=== PATIENT | male | born 1990 | race Caucasian/White ===

== ENCOUNTER 2017-06-09 10:31 | Observation (INO) | payer MEDICAID, SELFPAY ==
[2017-06-09 10:46] VITALS: BMI 21.2
[2017-06-09 10:48] VITALS: BP 103/69; PULSE 93; RESP 18; TEMP 37.1; O2SAT 98
--- NOTE | 2017-06-09 11:28 | PCM.HP.STD ---
Problem List (1) Heroin withdrawal Status: Acute History of Present Illness Date of Admission: 06/09/17 Chief Complaint: heroin withdrawal The patient is a 27 year old M who is voluntarily seeking withdrawal treatment for heroin. Patient snorts heroin and his last use was at 10 AM yesterday. Since then. Patient's been feeling anxious, also having restless legs abdominal cramps. Patient had a yesterday that he was sitting his arms backwards when he developed pop. Subsequently, patient not been able to bean picker things with his right arm because of pain in his right side of his chest. [] Past Medical History Allergies Penicillins Allergy (Verified 06/09/17 11:06) Unknown Home Medications: Ambulatory Orders Medication Instructions Recorded No Known/Unobtainable [No Known 06/09/17 Home Medications] Smoking Status: Never smoker Alcohol: None Drugs: Heroin - Daily, Marijuana - Daily - *Family History Paternal History Items: - - No medical problems Review of Systems Constitutional: Denies: Chills, Fever, Weight Change Eyes: Denies: Blurred vision, Double vision HEENT: Reports: - - Rhinitis Cardiovascular: Denies: Chest Pain, Palpitations Respiratory: Denies: Cough, Shortness of breath at rest, Sputum production Gastrointestinal: Denies: Abdominal Pain, Nausea, Vomiting Genitourinary: Denies: Dysuria Musculoskeletal: Denies: Joint Pain, Joint Tenderness Skin: Denies: Rash, Wounds Neurological: Denies: Numbness, Tingling, Focal weakness Hematologic/ Lymphatic: Denies: Easy Bruising, Easy Bleeding VTE Information - Inpt Only VTE Present on Admission: No Patient Problems: Active and Suspected Problems Heroin withdrawal (Acute) - Physical Exam General: Alert, Cooperative, No apparent distress, Well developed, Well nourished HEENT: Atraumatic, Normocephalic Neck: No Nodes, Thyroid Normal Size and Texture Lungs: Clear to auscultation, Normal air movement, No rhonchi, No wheeze Cardiovascular: Regular rate, Regular Rhythm, Normal S1, Normal S2, No murmurs Abdomen: Bowel Sounds Present, Soft, Non Tender, Non-Distended, No Hepato-splenomegaly Extremities: No edema, No Calf Tenderness Psych/Mental Status: Normal Affect, Appropriate Vital Signs Temp Pulse Resp BP Pulse Ox 37.1 C 93 18 103/69 98 06/09/17 10:48 06/09/17 10:48 06/09/17 10:48 06/09/17 10:48 06/09/17 10:48 Oxygen Delivery Method Room Air Weight: 65.091 kg Body Mass Index (BMI) 21.2 Assessment/Plan Active and Suspected Problems Heroin withdrawal (Acute) 1. Acute heroin withdrawal Patient be started on the medical stabilization protocol for his heroin withdrawal. That includes Subutex. Additionally, for patient other somatic symptoms, will have other agents should be delineated in his orders. Further outpatient management will be assessed by the [facility] team.
--- NOTE | 2017-06-09 11:32 | HP.PCM_ITS ---
Problem List (1) Heroin withdrawal Status: Acute History of Present Illness Date of Admission: 06/09/17 Chief Complaint: heroin withdrawal The patient is a 27 year old M who is voluntarily seeking withdrawal treatment for heroin. Patient snorts heroin and his last use was at 10 AM yesterday. Since then. Patient's been feeling anxious, also having restless legs abdominal cramps. Patient had a yesterday that he was sitting his arms backwards when he developed pop. Subsequently, patient not been able to picker tender things with his right arm because of pain in his right side of his chest. [] Past Medical History Allergies Penicillins Allergy (Verified 06/09/17 11:06) Unknown Home Medications: Ambulatory Orders Medication Instructions Recorded No Known/Unobtainable [No Known 06/09/17 Home Medications] Smoking Status: Never smoker Alcohol: None Drugs: Heroin - Daily, Marijuana - Daily - *Family History Paternal History Items: - - No medical problems Review of Systems Constitutional: Denies: Chills, Fever, Weight Change Eyes: Denies: Blurred vision, Double vision HEENT: Reports: - - Rhinitis Cardiovascular: Denies: Chest Pain, Palpitations Respiratory: Denies: Cough, Shortness of breath at rest, Sputum production Gastrointestinal: Denies: Abdominal Pain, Nausea, Vomiting Genitourinary: Denies: Dysuria Musculoskeletal: Denies: Joint Pain, Joint Tenderness Skin: Denies: Rash, Wounds Neurological: Denies: Numbness, Tingling, Focal weakness Hematologic/ Lymphatic: Denies: Easy Bruising, Easy Bleeding VTE Information - Inpt Only VTE Present on Admission: No Patient Problems: Active and Suspected Problems Heroin withdrawal (Acute) - Physical Exam General: Alert, Cooperative, No apparent distress, Well developed, Well nourished HEENT: Atraumatic, Normocephalic Neck: No Nodes, Thyroid Normal Size and Texture Lungs: Clear to auscultation, Normal air movement, No rhonchi, No wheeze Cardiovascular: Regular rate, Regular Rhythm, Normal S1, Normal S2, No murmurs Abdomen: Bowel Sounds Present, Soft, Non Tender, Non-Distended, No Hepato- splenomegaly Extremities: No edema, No Calf Tenderness Psych/Mental Status: Normal Affect, Appropriate Vital Signs Temp Pulse Resp BP Pulse Ox 37.1 C 93 18 103/69 98 10/19/17 10:48 06/09/17 10:48 06/09/17 10:48 06/09/17 10:48 06/09/17 10:48 Oxygen Delivery Method Room Air Weight: 65.091 kg Body Mass Index (BMI) 21.2 Assessment/Plan Active and Suspected Problems Heroin withdrawal (Acute) 1. Acute heroin withdrawal * Patient be started on the medical stabilization protocol for his heroin withdrawal. That includes Subutex. Additionally, for patient other somatic symptoms, will have other agents should be delineated in his orders. * Further outpatient management will be assessed by the [facility] team.
[2017-06-09 11:45] VITALS: PULSE 60
[2017-06-09] MEDS: Buprenorphine HCl 2 MG TAB.SUBL 4 MG SL (11:47)
[2017-06-09] MEDS: cloNIDine HCl 0.1 MG Tablet 0.2 MG PO (11:48)
[2017-06-09] MEDS: Methocarbamol 750 MG Tablet PO (11:48)
[2017-06-09] MEDS: Dicyclomine 10 MG Capsule 20 MG PO (11:48)
[2017-06-09 11:52] LABS: Amphetamine Urine VISTA NEGATIVE (<1000 ng/mL); Barbiturate Urine VISTA NEGATIVE (< 200 ng/mL); Benzodiazepine Urine VISTA NEGATIVE (< 200 ng/mL); Cocaine Urine VISTA NEGATIVE (< 300 ng/mL); Ecstacy Urine VISTA NEGATIVE (< 500 ng/mL); Methadone Urine VISTA NEGATIVE (< 300 ng/mL); PCP Urine VISTA NEGATIVE (< 25 ng/mL); THC Urine VISTA POSITIVE (< 50 ng/mL); Vista UDS pH Range 5
[2017-06-09 12:38] LABS: Absolute Lymphocyte Count 2.41 X10^3/ul (0.83-4.51); Absolute Neutrophil Count 3.1 X10^3/uL (2.0-7.7); Basophil# 0.02 X10^3/uL; Basophil% 0.3 % (0-1); Eosinophil# 0.12 X10^3/uL; Eosinophils% 1.9 % (0-5); Hematocrit 42.3 % (40-54); Hemoglobin 14.4 g/dl (13.0-16.5); Lymphocyte # 2.41 X10^3/ul (4.0); Mean Corpuscular Hgb 29.3 pg (27.0-32.0); Mean Platelet Vol. 8.9 fl (6.2-12.0); Monocyte# 0.64 X10^3/uL; Monocyte% 10.1 % (0-10); Neutrophil # 3.14 X10^3/uL (2.7-7.7); Neutrophil % 49.5 % (47-70); Platelet Count 253 K/mm3 (150-450); RBC Distribution Width CV 12.4 % (11.6-14.6); RBC Distribution Width SD 39.2 fl (35.1-43.9); Red Blood Count 4.92 M/mm3 (4.6-6.2); White Blood Count 6.3 K/mm3 (4.4-11.0)
[2017-06-09 12:40] LABS: POSITIVE COUNT NO; POSITIVE DIFFERENTIAL NO; POSITIVE MORPHOLOGY NO
[2017-06-09 13:08] LABS: ALB/GLOB Ratio 1.1 RATIO (0.9-2.4); AST(SGOT) 46 U/L (15-37); Alanine Aminotransfer ALT/SGPT 66 U/L (12-78); Albumin, Serum 4.4 g/dL (3.4-5.0); Alkaline Phosphatase 111 U/L (45-117); Anion Gap 8 (5-15); BUN 12 mg/dL (7-18); BUN/Creat Ratio 12.9 RATIO (10-20); Calcium,Total 9.1 mg/dL (8.5-10.1); Chloride 99 mmol/L (98-107); Creatinine, Serum 0.93 mg/dL (0.70-1.30); EST Glomerular Filtration Rate 105 mL/min (>60); Est Glom Filt Rate - Afr Amer 127 mL/min (>60); Estimated Creatinine Clearance 110.82 ml/min; Globulin 3.9 g/dL (2.2-4.2); Glucose 95 mg/dL (70-110); Potassium 3.9 mmol/L (3.5-5.1); Protein, Total 8.3 g/dL (6.4-8.2); Sodium Level 138 mmol/L (136-145)
--- NOTE | 2017-06-09 13:34 | NURSING ---
Lesia RN noted patient standing at elevator with bag. Jada from [facility] came up to speak to patient. This RN also speaking with patient. States he doesn't want to be here. Asked why he doesn't want to get clean- states he just doesn't want to do it here. explained that other rehabs won't be this nice. Patient states he wants to leave. Already called his dad to come. AMA papers signed and patient went downstairs to wait for dad. Dr. Reaves notified. Radha and Julia notified. Radha states patient did take his subutex but not his other meds. Mother called stating patient said we would not give subutex til tomorrow. Explained that is not true. mother upset and frustrated but understanding we cant make him stay. Concerned with money they just put on credit card. Told them to ask at patient financial. Before I spoke with financial they called up to ask. Spoke with nancy haskins who was in agreement to void the charge on their card. Nadja in [facility] aware.
--- NOTE | 2017-06-09 13:34 | PCM.DC.SUM ---
Discharge Date and Diagnosis - Problem List Patient Problems: Active and Suspected Problems Heroin withdrawal (Acute) Date of Admission: 06/09/17 Date of Discharge: 06/09/17 - Primary Discharge Diagnosis Active and Suspected Problems Heroin withdrawal (Acute) Hospital Course and Treatment Summary of Care Provided: The patient is a 27 year old M presented voluntarily for heroin withdrawal. Patient left AGAINST MEDICAL ADVICE without a providing additional information. [] Discharge Diet: No Restrictions Discharge Activity: Return to Normal Activity Home Medications: Medications to take at Discharge No Known/Unobtainable [No Known Home Medications] 06/09/17 Primary Care Physician: Care Physician,No Primary [Primary Care Provider] - Disposition: Against Medical Advice Patient Condition:: Stable Meaningful Use Info Meaningful Use Diagnoses (Choose all that apply): None applicable
--- NOTE | 2017-06-09 13:38 | NURSING ---
TOOK SUBUTEX. REFUSED METHACARBAMOL, BENTYL & CATAPRESS. REFUSING TO STAY, FATHER COMING TO INTENSIVIST. WAITING DOWNSTAIRS FOR FAMILY. 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
== END 2017-06-09 13:11 | disposition left against medical advice (07) | DRG 897 ==
LOC: MS2 11-22 10:12
DX: F11.23 Opioid dependence with withdrawal (principal)
CPT/HCPCS: 80053; 80307; 85025; 99218; G0378; G0379